=== PATIENT | male | born 1950 | race Caucasian/White ===

== ENCOUNTER → 2017-05-21 | Outpatient (CLI) | payer MEDICARE, OTHER ==
[2016-01-29 09:34] VITALS: BP 159/92
== END ==
LOC: RAD 11:07
DX: M19.012 Primary osteoarthritis, left shoulder (principal); E78.4 Other hyperlipidemia; Z12.5 Encounter for screening for malignant neoplasm of prostate; Z13.1 Encounter for screening for diabetes mellitus; Z13.6 Encounter for screening for cardiovascular disorders; Z00.00 Encounter for general adult medical examination without abnormal findings; G47.33 Obstructive sleep apnea (adult) (pediatric); M43.6 Torticollis; I45.81 Long QT syndrome; I51.7 Cardiomegaly; E78.5 Hyperlipidemia, unspecified

== ENCOUNTER → 2017-11-27 | Outpatient (CLI) | payer MEDICARE, OTHER ==
[2016-01-29 09:34] VITALS: BP 159/92
== END ==
LOC: RAD 10:08
DX: M18.11 Unilateral primary osteoarthritis of first carpometacarpal joint, right hand (principal); M19.041 Primary osteoarthritis, right hand; M25.512 Pain in left shoulder

== ENCOUNTER 2018-01-12 09:30 | Outpatient (RCR) | payer MEDICARE, OTHER ==
[2016-01-29 09:34] VITALS: BP 159/92
== END 2018-01-12 10:00 | disposition home or self-care (01) ==
LOC: OT 09:30
DX: M25.512 Pain in left shoulder (principal); G89.29 Other chronic pain; M19.041 Primary osteoarthritis, right hand
CPT/HCPCS: G8985-GP

== ENCOUNTER → 2018-06-10 | Outpatient (CLI) | payer MEDICARE, OTHER ==
[2016-01-29 09:34] VITALS: BP 159/92
== END ==
LOC: LAB 10:15
DX: Z12.5 Encounter for screening for malignant neoplasm of prostate (principal); Z23 Encounter for immunization; Z00.00 Encounter for general adult medical examination without abnormal findings; E78.5 Hyperlipidemia, unspecified; B35.1 Tinea unguium; M19.019 Primary osteoarthritis, unspecified shoulder; G47.33 Obstructive sleep apnea (adult) (pediatric); I51.7 Cardiomegaly

== ENCOUNTER 2018-07-01 08:30 | Outpatient (RCR) | payer MEDICARE, OTHER ==
[2016-01-29 09:34] VITALS: BP 159/92
== END 2018-07-01 09:00 | disposition home or self-care (01) ==
LOC: PT 08:30
DX: M75.52 Bursitis of left shoulder (principal)
CPT/HCPCS: G8985-GP

== ENCOUNTER 2018-07-30 16:24 | Emergency (ER) | payer MEDICARE, OTHER ==
[~2018-07-30] VITALS: Ht 157.5 cm; Wt 100.0 kg
[2018-07-30 17:45] VITALS: BP 158/90
== END 2018-07-30 17:40 | disposition home or self-care (01) ==
LOC: ED 16:24
DX: S61.411A Laceration without foreign body of right hand, initial encounter (principal); W01.198A Fall on same level from slipping, tripping and stumbling with subsequent striking against other object, initial encounter; Y92.008 Other place in unspecified non-institutional (private) residence as the place of occurrence of the external cause; I10 Essential (primary) hypertension

== ENCOUNTER 2018-08-10 10:15 | Emergency (ER) | payer MEDICARE, OTHER ==
[2018-08-10 10:33] VITALS: BP 155/95
== END 2018-08-10 10:33 | disposition home or self-care (01) ==
LOC: ED 10:15
DX: Z48.02 Encounter for removal of sutures (principal)

== ENCOUNTER → 2020-10-04 | Outpatient (CLI) | payer MEDICARE, OTHER | LOC: LAB 13:09 | DX: Z01.812 Encounter for preprocedural laboratory examination (principal); Z20.828 Contact with and (suspected) exposure to other viral communicable diseases ==

== ENCOUNTER 2020-10-08 17:14 | Emergency (ER) | payer MEDICARE, OTHER ==
[2020-10-08 17:54] LABS: EOS % 0.4 % (0.0-4.0); HEMATOCRIT 45.9 % (42.0-52.0); LYMPH# 1.8 (1.50-4.00); MEAN CELL VOLUME 91 fl (78-100); MEAN CORPUSCULAR HEMOGLOBIN 30 pg (27-31); MEAN CORPUSCULAR HGB CONC 33 g/dL (33-37); MEAN PLATELET VOLUME 10.2 fl (7.4-10.4); MONO # 0.6 (0.20-0.80); NEU # 5.3 (1.40-6.50); PLATELET COUNT 244 K/mm3 (130-400); RED BLOOD COUNT 5.05 M/mm3 (4.20-5.60); RED CELL DISTRIBUTION WIDTH 12.9 % (11.5-14.5); WHITE BLOOD COUNT 7.8 K/mm3 (4.8-10.8)
[2020-10-08 18:02] LABS: ALBUMIN 4.3 g/dL (3.4-4.8)
[2020-10-08 18:03] LABS: CALCIUM 9.2 mg/dL (8.3-10.5)
[2020-10-08 18:05] LABS: TOTAL PROTEIN 6.9 g/dL (6.2-8.1)
[2020-10-08 18:06] LABS: TOTAL BILIRUBIN 0.5 mg/dL (0.2-1.2)
[2020-10-08 18:08] LABS: PARTIAL THROMBOPLASTIN TIME 21.9 SECONDS (21.0-32.0); PROTHROMBIN TIME 10.3 SECONDS (9.0-12.0)
[2020-10-08 20:00] VITALS: BP 142/87
== END 2020-10-08 20:00 | disposition short-term general hospital (02) ==
LOC: ED 17:14
PROVIDERS: Family Medicine
DX: I21.3 ST elevation (STEMI) myocardial infarction of unspecified site (principal)
CPT/HCPCS: J0282; J1644; J3101; J7060

== ENCOUNTER → 2020-10-16 | Outpatient (CLI) | payer MEDICARE, OTHER ==
[2020-10-08 20:00] VITALS: BP 142/87
== END ==
LOC: RAD 09:51
DX: I25.10 Atherosclerotic heart disease of native coronary artery without angina pectoris (principal)

== ENCOUNTER 2020-10-18 13:05 | Outpatient (RCR) | payer MEDICARE, OTHER | END 2020-11-24 14:53 | disposition home or self-care (01) | LOC: PT 13:05 | DX: M75.101 Unspecified rotator cuff tear or rupture of right shoulder, not specified as traumatic (principal) ==

== ENCOUNTER → 2020-10-24 | Outpatient (CLI) | payer MEDICARE, OTHER ==
[2020-10-08 20:00] VITALS: BP 142/87
== END ==
LOC: LAB 10:48
DX: R05 Cough (principal); Z20.822 Contact with and (suspected) exposure to COVID-19

== ENCOUNTER 2020-11-01 09:59 | Outpatient (RCR) | payer MEDICARE, OTHER | END 2021-01-30 | disposition home or self-care (01) | LOC: CARDREHAB | DX: Z48.812 Encounter for surgical aftercare following surgery on the circulatory system (principal); I21.9 Acute myocardial infarction, unspecified; Z95.5 Presence of coronary angioplasty implant and graft ==

== ENCOUNTER → 2021-01-01 | Outpatient (CLI) | payer MEDICARE, OTHER ==
[2021-01-01 08:43] LABS: ALBUMIN 4.1 g/dL (3.4-4.8)
[2021-01-01 08:45] LABS: TOTAL PROTEIN 6.7 g/dL (6.2-8.1)
[2021-01-01 08:51] LABS: DIRECT BILIRUBIN 0.4 mg/dL (0.0-0.5)
== END ==
LOC: LAB 08:14
PROVIDERS: Family Medicine
DX: I25.10 Atherosclerotic heart disease of native coronary artery without angina pectoris (principal)

== ENCOUNTER → 2022-02-21 | Outpatient (CLI) | payer MEDICARE, OTHER ==
[2022-02-21 12:32] LABS: POTASSIUM 4.2 mmol/L (3.5-5.1)
[2022-02-21 12:33] LABS: ALBUMIN 3.9 g/dL (3.4-4.8)
[2022-02-21 12:34] LABS: CALCIUM 9.2 mg/dL (8.3-10.5)
[2022-02-21 12:35] LABS: TOTAL PROTEIN 6.3 g/dL (6.2-8.1)
[2022-02-21 12:37] LABS: TOTAL BILIRUBIN 0.9 mg/dL (0.2-1.2)
== END ==
LOC: LAB 12:04
PROVIDERS: Family Medicine
DX: Z12.5 Encounter for screening for malignant neoplasm of prostate (principal); I25.10 Atherosclerotic heart disease of native coronary artery without angina pectoris; I51.7 Cardiomegaly; E78.5 Hyperlipidemia, unspecified

== ENCOUNTER → 2022-03-04 | Day surgery (SDC) | payer MEDICARE, OTHER | END | disposition home or self-care (01) | LOC: MSO 07:32 | DX: Z12.11 Encounter for screening for malignant neoplasm of colon (principal) | CPT/HCPCS: G0121; 00812; J2704; J7120 ==

== ENCOUNTER → 2022-04-03 | Outpatient (CLI) | payer MEDICARE, OTHER | LOC: AMSURD 12:17 | DX: I49.40 Unspecified premature depolarization (principal) ==

== ENCOUNTER → 2022-05-06 | Outpatient (CLI) | payer MEDICARE, OTHER | LOC: AMSURD 10:55 | DX: I49.49 Other premature depolarization (principal) ==